=== PATIENT | male | born 1995 | race Caucasian/White ===

== ENCOUNTER 2024-05-30 21:01 | Inpatient (IN) | payer MEDICAID ==
[~2024-05-30] VITALS: Ht 177.8 cm; Wt 73.0 kg
[2024-05-30 21:30] VITALS: BP 146/93; TEMP 98.2; O2SAT 99
[2024-05-31] VITALS: BP 129/89; TEMP 98.3; O2SAT 99
[2024-05-31] MEDS ORDERED: LORAZEPAM 1 MG TABLET PO PRN ×2 (02:00→08:30)
[2024-05-31] MEDS ORDERED: MAG HYDROX/AL HYDROX/SIMETH 30 ML UDC PO PRN ×2 (02:00→08:30)
[2024-05-31] MEDS ORDERED: MORPHINE SULFATE INJ 4 MG/ML DISP.SYRIN IM ONE (02:00)
[2024-05-31] MEDS ORDERED: MAGNESIUM HYDROXIDE 30 ML UDC PO PRN ×2 (02:00→08:30)
[2024-05-31] MEDS ORDERED: ACETAMINOPHEN 325 MG TABLET PO PRN ×2 (02:00→08:30)
[2024-05-31] MEDS: IV NS 0.9% 1,000 ML IV SCH (02:15)
[2024-05-31] MEDS: ONDANSETRON HCL/PF 4 MG/2 ML VIAL IVP PRN (02:46)
[2024-05-31] MEDS: MORPHINE SULFATE INJ 2 MG/ML DISP.SYRIN IV ONE (02:49)
[2024-05-31 04:00] VITALS: BP_SYST 104; BP_SYST 128; BP_DIAS 65; BP_DIAS 78; TEMP 98; TEMP 98.3; O2SAT 99
[2024-05-31 08:00] VITALS: BP 145/94; TEMP 97.9; O2SAT 97
[2024-05-31] MEDS ORDERED: ONDA4TAB5 PO (08:22)
[2024-05-31] MEDS ORDERED: IV NS 0.9% 1,000 ML IV PRN (08:30)
[2024-05-31] MEDS: FOLIC ACID 1 MG TABLET PO SCH (08:30)
[2024-05-31] MEDS ORDERED: Z GUARD REMEDY 4 OZ OINT TP PRN (08:30)
[2024-05-31] MEDS: PANTOPRAZOLE 40 MG TABLET.DR PO SCH (08:30)
[2024-05-31] MEDS ORDERED: ONDANSETRON HCL/PF 4 MG/2 ML VIAL IVP PRN (08:30)
[2024-05-31] MEDS: THIAMINE HCL 100 MG TABLET PO SCH (08:33)
[2024-05-31] MEDS ORDERED: PANTOPRAZOLE 40 MG VIAL IV SCH (09:00)
[2024-05-31] MEDS ORDERED: CHLORDIAZEPOXIDE HCL 25 MG CAPSULE PO SCH (09:00)
== END 2024-05-31 11:20 | disposition home or self-care (01) | DRG 58 ==
LOC: TELE 21:01
PROVIDERS: ADMIT Nurse Practitioner Acute Care; ATTEND Nurse Practitioner Acute Care
DX: G25.2 Other specified forms of tremor (principal); D72.829 Elevated white blood cell count, unspecified; F10.232 Alcohol dependence with withdrawal with perceptual disturbance; E83.42 Hypomagnesemia; F12.90 Cannabis use, unspecified, uncomplicated; F19.10 Other psychoactive substance abuse, uncomplicated; Z63.72 Alcoholism and drug addiction in family; Z81.1 Family history of alcohol abuse and dependence; Z88.8 Allergy status to other drugs, medicaments and biological substances
CPT/HCPCS: A4223; G0378; J2270; J2405; J7030

== ENCOUNTER 2024-06-11 09:32 | Emergency (ER) | payer MEDICAID ==
[~2024-06-11] VITALS: Ht 177.8 cm; Wt 83.9 kg
[~2024-06-11 09:32] MED LIST: ONDA4TAB5 PO
[2024-06-11 10:00] LABS: BASOPHILS # (AUTO) 0.1 K/uL (0.0-0.2); BASOPHILS % (AUTO) 0.5 % (0.0-2.0); HEMATOCRIT 44 % (39-51); HEMOGLOBIN 14.7 g/dL (13.5-17.5); LYMPHOCYTES # (AUTO) 0.8 K/uL (0.8-4.8); LYMPHOCYTES % (AUTO) 7.3 % (20.0-44.0); MEAN CORPUSCULAR HEMOGLOBIN 30 PG (26.0-33.0); MEAN CORPUSCULAR HGB CONC 34 g/dl (31.0-36.0); MEAN CORPUSCULAR VOLUME 90 fL (80-96); MONOCYTES # (AUTO) 1.2 K/uL (0.1-1.30); MONOCYTES % (AUTO) 10.9 % (2.0-12.0); NEUTROPHILS # (AUTO) 8.8 K/uL (1.8-8.9); NEUTROPHILS % (AUTO) 81.3 % (43.0-81.0); PLATELET COUNT (AUTO) 284 K/uL (150-450); RED BLOOD CELL COUNT(AUTO) 4.85 MIL/uL (4.5-6.0); RED CELL DISTRIBUTION WIDTH 15.6 % (11.5-15.0); WHITE BLOOD COUNT (AUTO) 10.8 K/uL (4.3-11.0)
[2024-06-11] MEDS ORDERED: ONDANSETRON HCL/PF 4 MG/2 ML VIAL ONE (10:07)
[2024-06-11 10:10] LABS: CALCIUM, SERUM 9.5 mg/dL (8.5-10.1); CREATININE 0.8 mg/dL (0.6-1.3); POTASSIUM 3.6 mmol/L (3.5-5.1)
[2024-06-11] MEDS: IV NS 0.9% 1,000 ML BAG IV ONE (10:12)
[2024-06-11] MEDS: ONDANSETRON HCL/PF 4 MG/2 ML VIAL IVP ONE (10:12)
[2024-06-11 10:15] LABS: BILIRUBIN,DIRECT 0.4 mg/dL (0.0-0.2); BILIRUBIN,TOTAL 1.2 mg/dL (0.2-1.0); TOTAL PROTEIN, SERUM 8.9 g/dL (6.4-8.2)
[2024-06-11 10:41] LABS: APPEARANCE,URINE Clear (CLEAR); BILIRUBIN,URINE SMALL (NEGATIVE); BLOOD, URINE Trace-intact Ery/uL (NEGATIVE); COLOR,URINE DARK YELLOW (YELLOW); KETONES,URINE 40 mg/dL (NEGATIVE); LEUKOCYTE ESTERASE ,URINE Negative (NEGATIVE); NITRITE, URINE Negative (NEGATIVE); PH,URINE 6.5 (5.0-8.0); PROTEIN,URINE 100 mg/dl (NEGATIVE); UGLUCOSE Negative (NEGATIVE)
[2024-06-11] MEDS ORDERED: METOCLOPRAMIDE HCL 10 MG/2 ML VIAL ONE (10:57)
[2024-06-11] MEDS ORDERED: DICYCLOMINE HCL INJ 20 MG/2 ML AMPUL IM ONE (10:57)
[2024-06-11] MEDS ORDERED: HALOPERIDOL LACTATE INJ 5 MG/ML VIAL ONE (10:57)
[2024-06-11] MEDS ORDERED: diphenhydrAMINE HCL 50 MG/ML VIAL ONE (10:57)
[2024-06-11 10:59] LABS: AMPHETAMINE, URINE NEGATIVE (NEGATIVE); BARBITURATE, URINE NEGATIVE (NEGATIVE); BENZODIAZEPINE, URINE NEGATIVE (NEGATIVE); CANNABINOID, URINE POSITIVE (NEGATIVE); COCCAINE, URINE NEGATIVE (NEGATIVE); OPIATE, URINE NEGATIVE (NEGATIVE); PHENCYCLIDINE SCREEN,URINE NEGATIVE (NEGATIVE)
[2024-06-11] MEDS: diphenhydrAMINE HCL 50 MG/ML VIAL IV ONE (11:04)
[2024-06-11] MEDS: DICYCLOMINE HCL INJ 20 MG/2 ML AMPUL IM ONE (11:04)
[2024-06-11] MEDS: HALOPERIDOL LACTATE INJ 5 MG/ML VIAL IV ONE (11:05)
[2024-06-11] MEDS: METOCLOPRAMIDE HCL 10 MG/2 ML VIAL IV ONE (11:06)
[2024-06-11 11:07] LABS: ADD URINE CULTURE NO; BACTERIA,URINE 1+ /HPF (None Seen); MUCUS,URINE Many /LPF (None Seen); SQUAMOUS EPITHELIAL CELL,UR None Seen /HPF (None Seen); WBC,URINE 0-2 /HPF (0-3)
[2024-06-11] MEDS ORDERED: CHLO25CA22 PO (12:35)
[2024-06-11] MEDS ORDERED: ONDA4TAB11 PO (12:35)
[2024-06-11 12:43] VITALS: BP 142/74; TEMP 98.8; O2SAT 98
[2024-06-11] MEDS ORDERED: CHLORDIAZEPOXIDE HCL 25 MG CAPSULE ONE (12:54)
[2024-06-11] MEDS: CHLORDIAZEPOXIDE HCL 25 MG CAPSULE PO ONE (13:02)
== END 2024-06-11 12:43 | disposition home or self-care (01) ==
LOC: ER 10:06
DX: R11.15 Cyclical vomiting syndrome unrelated to migraine (principal); R11.2 Nausea with vomiting, unspecified; F12.10 Cannabis abuse, uncomplicated; F10.239 Alcohol dependence with withdrawal, unspecified; R25.1 Tremor, unspecified; F10.20 Alcohol dependence, uncomplicated; Z98.890 Other specified postprocedural states; Z79.899 Other long term (current) drug therapy; Z60.2 Problems related to living alone; Z88.2 Allergy status to sulfonamides; Y90.2 Blood alcohol level of 40-59 mg/100 ml
CPT/HCPCS: 99285; 96372; 96374; 96361; 96375; 76705; 85025; 80048; 83690; 80076; 81001; 36415; 80320; 80307; J1200; J1630; J2765; J2405; J7030; J0500; G0480